=== PATIENT | female | born 1990 | race Asian ===

== ENCOUNTER 2023-12-23 19:00 | Inpatient (IN) | payer OTHER ==
[2023-12-23] MEDS: ELECTROLYTE-148 SOLN 1,000 ML IV SCH (19:45)
[2023-12-23 20:10] LABS: BASO % 0.3 % (0-2.0); EOS % 1.8 % (0-4.5); HEMATOCRIT 36.2 % (32.4-45.2); HEMOGLOBIN 12.1 GM/dL (10.7-15.3); LYMPH % 24.7 % (8-40); MCH 30.7 pg (25.7-33.7); MCHC 33.5 g/dl (32.0-36.0); MEAN CELL VOLUME 91.5 fl (80-96); MEAN PLT VOLUME 9.8 fl (7.5-11.1); MONO % 11.8 % (3.8-10.2); NEUT % 61.4 % (42.8-82.8); PLATELET COUNT 277 10^3/uL (134-434); RBC 3.95 M/mm3 (3.60-5.2); RDW 14.5 % (11.6-15.6); WHITE BLOOD COUNT 10.2 K/mm3 (4.0-10.0)
[2023-12-23 20:18] LABS: INR 0.9 (0.83-1.09); PROTHROMBIN TIME (PATIENT) 10.5 SEC (9.7-13.0)
[2023-12-23 20:20] LABS: ACTIVATED PTT 30.6 SECONDS (25.2-36.5)
[2023-12-23 20:35] VITALS: BMI 33.8
[2023-12-23 20:39] LABS: POTASSIUM 4.1 mmol/L (3.5-5.1)
[2023-12-23 20:40] LABS: CALCIUM 9.4 mg/dL (8.5-10.1)
[2023-12-23 20:41] LABS: BLOOD UREA NITROGEN 12.6 mg/dL (7-18)
[2023-12-23 20:44] LABS: CREATININE 0.5 mg/dL (0.55-1.3)
[2023-12-23] MEDS: DINOPROSTONE 10 MG VAGINAL SUPPOSITORY VG ONE (21:40)
[2023-12-23] MEDS ORDERED: MUPIROCIN 2% TOPICAL OINTMENT 22 GM TUBE TP PRN (21:45)
[2023-12-23] MEDS: CRISABOROLE TP SCH (22:00)
[2023-12-23] MEDS ORDERED: BUDESONIDE/FORMETEROL FUMARATE 160/4.5 mcg INHALER IH PRN (22:00)
[2023-12-23] MEDS ORDERED: SYMBICORT IH PRN (22:17)
[2023-12-23] MEDS: [UNRECOGNIZED DRUG - OTHER] PO SCH (23:30)
[2023-12-24] MEDS ORDERED: morphine SULFATE/PF 1 MG/2 ML (2cc Syringe - QUVA) ONE (01:13)
[2023-12-24 02:18] LABS: CORD HCO3 20.3 mmHg (20-29); CORD pH 7.148 (7.14-7.44)
[2023-12-24 02:20] LABS: CORD BASE EXCESS -6.5 mmol/L (0-2); CORD HCO3 22.2 mmHg (20-29); CORD PCO2 56.9 mmHg (30-78); CORD pH 7.209 (7.14-7.44)
[2023-12-24] MEDS ORDERED: METHYLERGONOVINE MALEATE 0.2 MG/1 ML AMP IM PRN (02:36)
[2023-12-24] MEDS ORDERED: SENNOSIDES/DOCUSATE COMBO (SENNA PLUS) TABLET (UD) PO PRN (02:36)
[2023-12-24] MEDS ORDERED: WITCH HAZEL 50% (TUCKS) 40 PAD/JAR PAD TP PRN (02:36)
[2023-12-24] MEDS ORDERED: BENZOCAINE 28 GM HEMORRHOIDAL OINTMENT TP PRN (02:36)
[2023-12-24] MEDS ORDERED: BENZOCAINE 20% 57 GM BOTTLE TP PRN (02:36)
[2023-12-24] MEDS ORDERED: ONDANSETRON 4 MG/2 ML VIAL IVPUSH PRN (02:51)
[2023-12-24] MEDS ORDERED: OXYTOCIN 20 UNITS in 0.9% NS 20 UNIT/1,000 ML INFUS.BAG IV ONE (03:13)
[2023-12-24] MEDS: OXYTOCIN 20 UNITS in 0.9% NS 20 UNIT/1,000 ML INFUS.BAG IV SCH (03:15)
[2023-12-24] MEDS ORDERED: IBUPROFEN 800 MG/8 ML IJ IVPB ONE (03:48)
[2023-12-24] MEDS: IBUPROFEN 800 MG/8 ML IJ IVPB PRN (03:50)
[2023-12-24] MEDS: morphine SULFATE/PF 1 MG/2 ML (2cc Syringe - QUVA) IT ONE (04:08)
[2023-12-24] MEDS: ACETAMINOPHEN 325 MG TABLET (FP) PO PRN (09:52)
[2023-12-24] MEDS: PRENATAL VITAMINS W/ FOLIC ACID TABLET (FP) PO SCH (09:52)
[2023-12-24] MEDS: SIMETHICONE 80 MG TAB.CHEW (FP) PO PRN (09:52)
[2023-12-24] MEDS: ENOXAPARIN NA (PORCINE) 40 MG/0.4 ML DISP.SYRIN SQ SCH (09:52)
[2023-12-24] MEDS: LORATADINE 10 MG TABLET PO SCH (09:52)
[2023-12-24] MEDS ORDERED: PATIENT'S OWN MEDICATION (NON-FORMULARY) (Levocetirizine Dihydrochloride [Xyzal] 5 MG Tabl PO SCH (10:00)
[2023-12-24] MEDS: TRIAMCINOLONE ACET 0.1% CREAM 15 GM TUBE TP PRN (21:02)
[2023-12-24] MEDS: oxyCODONE HCL 5 MG TABLET PO PRN (23:52)
[2023-12-25] MEDS: IBUPROFEN 600 MG TABLET (FP) PO PRN (03:43)
[2023-12-25 06:23] LABS: BASO % 0.3 % (0-2.0); EOS % 2.4 % (0-4.5); HEMATOCRIT 31.7 % (32.4-45.2); HEMOGLOBIN 10.3 GM/dL (10.7-15.3); LYMPH % 18.1 % (8-40); MCH 30.4 pg (25.7-33.7); MCHC 32.6 g/dl (32.0-36.0); MEAN CELL VOLUME 93.4 fl (80-96); MEAN PLT VOLUME 9.2 fl (7.5-11.1); MONO % 10.7 % (3.8-10.2); NEUT % 68.5 % (42.8-82.8); PLATELET COUNT 223 10^3/uL (134-434); RDW 14.6 % (11.6-15.6); WHITE BLOOD COUNT 12.4 K/mm3 (4.0-10.0)
[2023-12-25] MEDS: BISACODYL 10 MG SUPP.RECT RC PRN (17:52)
[2023-12-26] MEDS: oxyCODONE HCL 5 MG TABLET PO PRN (21:16)
[2023-12-27 06:43] LABS: BASO % 0.3 % (0-2.0); EOS % 6.2 % (0-4.5); HEMATOCRIT 31.6 % (32.4-45.2); HEMOGLOBIN 10.4 GM/dL (10.7-15.3); LYMPH % 28.3 % (8-40); MCH 30.6 pg (25.7-33.7); MCHC 32.8 g/dl (32.0-36.0); MEAN CELL VOLUME 93.1 fl (80-96); MONO % 10.5 % (3.8-10.2); NEUT % 54.7 % (42.8-82.8); PLATELET COUNT 263 10^3/uL (134-434); RBC 3.39 M/mm3 (3.60-5.2); RDW 14.4 % (11.6-15.6); WHITE BLOOD COUNT 10.4 K/mm3 (4.0-10.0)
[2023-12-28 06:46] VITALS: BP 109/62; PULSE 96; RESP 18; TEMP 98.4
== END 2023-12-28 11:50 | disposition home or self-care (01) | DRG 788 ==
LOC: JLDR 19:00 → J3W 12-24 04:52
PROVIDERS: ADMIT Obstetrics & Gynecology; ATTEND Obstetrics & Gynecology
PROC: 10D00Z1 Extraction of Products of Conception, Low, Open Approach (ICD-10-PCS; principal; 2023-12-24)
DX: O36.5930 Maternal care for other known or suspected poor fetal growth, third trimester, not applicable or unspecified (principal); Z37.0 Single live birth; O76 Abnormality in fetal heart rate and rhythm complicating labor and delivery; O69.1XX0 Labor and delivery complicated by cord around neck, with compression, not applicable or unspecified; Z3A.37 37 weeks gestation of pregnancy
CPT/HCPCS: 36415; 36600; 80048; 82803; 85025; 85610; 85730; 86780; 86850; 86900; 86901; 88307-TC; 94010

== ENCOUNTER 2023-12-29 18:49 | Emergency (ER) | payer OTHER ==
[2023-12-29 19:04] VITALS: BP 116/59; PULSE 88; RESP 18; TEMP 98; BMI 33.4
[2023-12-29 20:00] LABS: BASO % 0.2 % (0-2.0); HEMOGLOBIN 11.9 GM/dL (10.7-15.3); LYMPH % 27.7 % (8-40); MCH 30.4 pg (25.7-33.7); MCHC 33.2 g/dl (32.0-36.0); MEAN CELL VOLUME 91.7 fl (80-96); MEAN PLT VOLUME 8.9 fl (7.5-11.1); MONO % 11.2 % (3.8-10.2); NEUT % 55.9 % (42.8-82.8); PLATELET COUNT 406 10^3/uL (134-434); RBC 3.93 M/mm3 (3.60-5.2); RDW 14.6 % (11.6-15.6); WHITE BLOOD COUNT 11.3 K/mm3 (4.0-10.0)
[2023-12-29 20:05] LABS: INR 0.89 (0.83-1.09); PROTHROMBIN TIME (PATIENT) 10.1 SEC (9.7-13.0)
[2023-12-29 20:08] LABS: EPI CELLS 16 /uL (0-25.1); HYALINE CASTS 0 /uL (0-3.1); URINE APPEARANCE CLEAR; URINE BACTERIA 105 /uL (0-1359); URINE BILIRUBIN NEGATIVE (NEGATIVE); URINE COLOR YELLOW; URINE GLUCOSE (UA) NEGATIVE (NEGATIVE); URINE KETONE NEGATIVE (NEGATIVE); URINE LEUK ESTERASE NEGATIVE (NEGATIVE); URINE NITRITE NEGATIVE (NEGATIVE); URINE PROTEIN NEGATIVE (NEGATIVE); URINE RBC 7 /uL (0-23.9); URINE UROBILINOGEN 0.2 mg/dL (0.2-1.0); URINE WBC 17 /uL (0-25.8)
[2023-12-29 20:08] LABS: ACTIVATED PTT 32.8 SECONDS (25.2-36.5)
[2023-12-29 20:12] LABS: POTASSIUM 4.7 mmol/L (3.5-5.1)
[2023-12-29 20:13] LABS: CALCIUM 9.3 mg/dL (8.5-10.1)
[2023-12-29 20:14] LABS: ALBUMIN 2.6 g/dl (3.4-5.0); BLOOD UREA NITROGEN 18.1 mg/dL (7-18); MAGNESIUM 1.9 mg/dL (1.8-2.4)
[2023-12-29 20:17] LABS: CREATININE 0.6 mg/dL (0.55-1.3)
[2023-12-29 20:19] LABS: BILIRUBIN,TOTAL 0.2 mg/dL (0.2-1); TOT PROT 7.1 g/dl (6.4-8.2)
[2023-12-29] MEDS: SODIUM CHLORIDE 0.9% 500 ML INFUS.BAG IV ONE (20:55)
== END 2023-12-29 22:13 | disposition home or self-care (01) ==
LOC: JER 18:49
DX: R25.1 Tremor, unspecified (principal); E86.0 Dehydration; R42 Dizziness and giddiness
CPT/HCPCS: 36415; 70450-TC; 71045-TC-FY; 80053; 81003; 82570; 83605; 83735; 84156; 84484; 85025; 85610; 85730; 87086; 93005; 93010; 99285-25